=== PATIENT | male | born 1930 | race Caucasian/White ===

== ENCOUNTER 2018-12-29 10:05 | Inpatient (IN) | payer MEDICARE, MEDICAID ==
[~2018-12-29] VITALS: Ht 170.2 cm; Wt 62.2 kg
--- NOTE | 2018-12-29 10:08 | NUR ---
PT NIA, FROM [facility], C/O POOR PO INTAKE x 3 DAYS, PT IS AAOX1, NOT IN RESPIRATORY DISTRESS, V/S STABLE, HOOKED TO MONITOR, KEPT RESTED AND COMFORTABLE.
--- NOTE | 2018-12-29 10:13 | NUR ---
SEEN AND EXAMINED BY DR. LEWIS.
--- NOTE | 2018-12-29 10:15 | NUR ---
IV LINE ESTABLISHED, LABS DRAWNED AND SENT TO LAB.
[2018-12-29] MEDS ORDERED: IV NS 0.9% 1,000 ML BAG IV ONE (10:30)
--- NOTE | 2018-12-29 10:30 | NUR ---
URINAL GIVEN BUT UNABLE TO PROVIDE URINE SPECIMEN.
[2018-12-29 10:32] LABS: BASOPHILS # (AUTO) 0.2 /CMM (0.0-0.2); BASOPHILS % (AUTO) 2.2 % (0.0-2.0); EOSINOPHILS % (AUTO) 2.8 % (0.0-6.0); HEMATOCRIT 37 % (39-51); HEMOGLOBIN 12.1 g/dL (13.5-17.5); LYMPHOCYTES # (AUTO) 1.8 /CMM (0.8-4.8); LYMPHOCYTES % (AUTO) 18.8 % (20.0-44.0); MEAN CORPUSCULAR HGB CONC 33 g/dl (31.0-36.0); MEAN CORPUSCULAR VOLUME 86 fL (80-96); MONOCYTES # (AUTO) 1.4 /CMM (0.1-1.30); MONOCYTES % (AUTO) 14.1 % (2.0-12.0); NEUTROPHILS # (AUTO) 5.9 /CMM (1.8-8.9); NEUTROPHILS % (AUTO) 62.1 % (43.0-81.0); PLATELET COUNT (AUTO) 436 /CMM (150-450); RED BLOOD CELL COUNT(AUTO) 4.26 MIL/uL (4.5-6.0); WHITE BLOOD COUNT (AUTO) 9.6 K/uL (4.3-11.0)
[2018-12-29 10:43] LABS: CALCIUM, SERUM 11.7 mg/dL (8.5-10.1); CARBON DIOXIDE 20 mmol/L (21-32); CHLORIDE 107 mmol/L (98-107); CREATININE 2.6 mg/dL (0.6-1.3); POTASSIUM 5.1 mmol/L (3.5-5.1); SODIUM SERUM 140 mmol/L (136-145); UREA NITROGEN, BLOOD 52 mg/dL (7-18)
--- NOTE | 2018-12-29 10:46 | NUR ---
QUALITY COORDINATOR AT BEDSIDE FOR XRAY.
[2018-12-29 10:47] LABS: ALANINE AMINOTRANSFERASE 10 U/L (12-78); ALKALINE PHOSPHATASE 53 U/L (46-116); ASPARTATE AMINOTRANSFERASE 15 U/L (15-37); BILIRUBIN,DIRECT 0.1 mg/dL (0.0-0.2); BILIRUBIN,TOTAL 0.3 mg/dL (0.2-1.0)
[2018-12-29 10:48] LABS: ALBUMIN 3.2 g/dL (3.4-5.0); TOTAL PROTEIN, SERUM 7.2 g/dL (6.4-8.2)
[2018-12-29 10:56] LABS: GLUCOSE 115 mg/dL (74-106)
--- NOTE | 2018-12-29 11:16 | NUR ---
DR BLACKWELL PAGED THRU OFFICE
[2018-12-29] MEDS ORDERED: IV NS 0.9% 1,000 ML IV ONE (11:30)
--- NOTE | 2018-12-29 11:59 | NUR ---
PAGED DR BLACKWELL FOR CALL BACK
[2018-12-29] MEDS ORDERED: OLME20TA13 PO (13:13)
--- NOTE | 2018-12-29 13:16 | NUR ---
PT ASSIGNED [id number]
--- NOTE | 2018-12-29 13:28 | NUR ---
REPORT GIVEN TO FRANKY FAULKNER FOR ASHUTOSH.
[2018-12-29] MEDS ORDERED: MIRT15TA7 PO (13:30)
[2018-12-29] MEDS ORDERED: TAMS-12 PO (13:30)
[2018-12-29] MEDS ORDERED: ERGO500040 PO (13:30)
[2018-12-29] MEDS ORDERED: FINA5TAB11 PO (13:30)
[2018-12-29] MEDS ORDERED: AMLO5TAB9 PO (13:30)
[2018-12-29] MEDS ORDERED: ASPI-1152 PO (13:30)
[2018-12-29] MEDS ORDERED: ATOR10TA PO (13:30)
[2018-12-29] MEDS ORDERED: ARIP2TAB3 PO (13:30)
[2018-12-29] MEDS ORDERED: PRAV20TA4 PO (13:30)
[2018-12-29] MEDS ORDERED: LISI30TA4 PO (13:30)
[2018-12-29] MEDS ORDERED: SPIR25TA6 PO (13:30)
--- NOTE | 2018-12-29 14:00 | NUR ---
AD OPERATIONS ASSOCIATE PATIENT A/OX1, BREATHING EVEN AND UNLABORED, NO SOB NOTED, VSS, KEPT PATIENT COMFORTABLE, PATIENT ABLE TO AMBULATE INDEPENDENTLY, STANDBY ASSIST. RECEIVED ORDERS FROM DR. BLACKWELL, ORDERS NOTED AND CARRIED OUT. SKIN ASSESSMENT DONE, PATIENT NOTED WITH LEFT HIP OPEN WOUND. PHOTOS TAKEN AND PLACED IN CHART. NEEDS ATTENDED, CALL LIGHT WITHIN REACH, WILL CONTINUE TO MONITOR.
[2018-12-29] MEDS: IV NS 0.9% 1,000 ML IV PRN (16:27)
--- NOTE | 2018-12-29 18:35 | NUR ---
RN NOTES PATIENT A/OX1, NO SIGNIFICANT CHANGE THROUGHOUT THIS SHIFT, BREATHING EVEN AND UNLABORED, NO SOB NOTED. PATIENT ATE DINNER 100% AND TOLERATED WELL. KEPT COMFORTABLE, PIV INFUSING AND TOLERATING WELL, NEEDS ATTENDED, CALL LIGHT WITHIN REACH, WILL ENDORSE TO BUSINESS SOLUTIONS DIRECTOR FOR ASHUTOSH.
--- NOTE | 2018-12-29 19:30 | NUR ---
RECEIVED PATIENT IN BED AWAKE. AO X 1-2, ABLE TO MAKE NEEDS KNOWN. NO ACUTE DISTRESS NOTED. NO SIGNS OF PAIN NOTED. IV SITE PATENT, INTACT; IVF INFUSING ORDERED. SAFETY REMINDERS GIVEN. ON LOW BED WITH BILATERAL UPPER SIDE RAILS UP. CALL SANCHEZ WITHIN EASY REACH. WILL CONTINUE TO MONITOR.
[2018-12-29 20:00] VITALS: BP 130/68
[2018-12-29 20:47] VITALS: BP 130/68
[2018-12-29] MEDS: ATORVASTATIN 10 MG TABLET PO SCH (21:06)
--- NOTE | 2018-12-30 06:30 | NUR ---
PATIENT ASLEEP, EASILY AROUSABLE. RESPIRATIONS EVEN. NO SIGNS OF PAIN NOTED. DUE MED GIVEN WITH NO ASE NOTED. IVF INFUSING ORDERED. NEEDS ATTENDED. KEPT CLEAN, DRY, AND COMFORTABLE. SAFETY PRECAUTIONS AND COMFORT MEASURES IN PLACE. WILL GIVE REPORT TO DAY SHIFT FOR CONTINUITY OF CARE.
[2018-12-30 07:34] LABS: BASOPHILS # (AUTO) 0.1 /CMM (0.0-0.2); BASOPHILS % (AUTO) 1.4 % (0.0-2.0); HEMATOCRIT 32 % (39-51); HEMOGLOBIN 10.9 g/dL (13.5-17.5); LYMPHOCYTES # (AUTO) 1.4 /CMM (0.8-4.8); LYMPHOCYTES % (AUTO) 14.3 % (20.0-44.0); MEAN CORPUSCULAR HGB CONC 34 g/dl (31.0-36.0); MEAN CORPUSCULAR VOLUME 85 fL (80-96); MONOCYTES # (AUTO) 1.7 /CMM (0.1-1.30); MONOCYTES % (AUTO) 16.9 % (2.0-12.0); NEUTROPHILS # (AUTO) 6.3 /CMM (1.8-8.9); NEUTROPHILS % (AUTO) 64.4 % (43.0-81.0); PLATELET COUNT (AUTO) 339 /CMM (150-450); RED BLOOD CELL COUNT(AUTO) 3.75 MIL/uL (4.5-6.0); WHITE BLOOD COUNT (AUTO) 9.8 K/uL (4.3-11.0)
--- NOTE | 2018-12-30 07:35 | NUR ---
MS RN OPENING NOTE RECEIVED PATIENT IN BED. SLEEPING, EASILY AROUSED WITH VERBAL STIMULI. ORIENTED X1-2. ON ROOM AIR, TOLERATING WELL. IN NO APPARENT DISTRESS OR DISCOMFORT AT THIS TIME. RESPIRATIONS EVEN AND UNLABORED. DENIES PAIN AND SOB. PATIENT IS ABLE TO COMMUNICATE BASIC NEEDS WHEN ASKED. USES DIAPER FOR ELIMINATION. LEFT AC 18G IVC WITH FLUIDS RUNNING AT 75ML/HR, PATENT INTACT. PATIENT KEPT CLEAN AND COMFORTABLE. ALL NEEDS ATTENDED, SAFETY MEASURES IN PLACE, BED IN LOW LOCKED POSITION, SIDE RAILS UP X3, BED ALARM ON, CALL LIGHT WITHIN EASY REACH. WILL CONTINUE TO MONITOR.
[2018-12-30 07:43] LABS: CALCIUM, SERUM 9.9 mg/dL (8.5-10.1); CARBON DIOXIDE 17 mmol/L (21-32); CHLORIDE 109 mmol/L (98-107); CREATININE 1.6 mg/dL (0.6-1.3); GLUCOSE 81 mg/dL (74-106); POTASSIUM 4.8 mmol/L (3.5-5.1); SODIUM SERUM 138 mmol/L (136-145); UREA NITROGEN, BLOOD 33 mg/dL (7-18)
[2018-12-30 08:00] VITALS: BP_SYST 114; BP_DIAS 52; BP_DIAS 54
[2018-12-30] MEDS: ASPIRIN 81 MG TAB.CHEW PO SCH (08:50)
[2018-12-30] MEDS: IV NS 0.9% 1,000 ML IV PRN (08:50)
[2018-12-30] MEDS: TAMSULOSIN 0.4 MG CAP.SR.24H PO SCH (08:50)
[2018-12-30 16:00] VITALS: BP 114/54
--- NOTE | 2018-12-30 18:13 | NUR ---
MS RN CLOSING NOTE PATIENT IN BED. EATING DINNER, ALERT ORIENTED X2. ON ROOM AIR, TOLERATING WELL. IN NO APPARENT DISTRESS OR DISCOMFORT AT THIS TIME. RESPIRATIONS EVEN AND UNLABORED. DENIES PAIN AND SOB. PATIENT IS ABLE TO COMMUNICATE BASIC NEEDS WHEN ASKED. USES DIAPER FOR ELIMINATION. LEFT AC 18G IVC WITH FLUIDS RUNNING AT 75ML/HR, PATENT INTACT. PATIENT KEPT CLEAN AND COMFORTABLE. ALL NEEDS ATTENDED, SAFETY MEASURES IN PLACE, BED IN LOW LOCKED POSITION, SIDE RAILS UP X3, BED ALARM ON, CALL LIGHT WITHIN EASY REACH. WILL ENDORSE TO PM NURSE FOR ASHUTOSH.
--- NOTE | 2018-12-30 19:30 | NUR ---
RECEIVED PATIENT IN BED AWAKE. AO X 1-2, ABLE TO MAKE NEEDS KNOWN. NO ACUTE DISTRESS NOTED. NO SIGNS OF PAIN NOTED. IV SITE PATENT, INTACT; IVF INFUSING ORDERED. SAFETY REMINDERS GIVEN. ON LOW BED WITH BILATERAL UPPER SIDE RAILS UP. BED ALARM SET. CALL SANCHEZ WITHIN EASY REACH. WILL CONTINUE TO MONITOR.
[2018-12-30 20:00] VITALS: BP 123/60
[2018-12-30] MEDS: ATORVASTATIN 10 MG TABLET PO SCH (21:43)
[2018-12-31] MEDS: IV NS 0.9% 1,000 ML IV PRN ×2 (01:49→16:01)
--- NOTE | 2018-12-31 07:49 | NUR ---
RN MS NOTES Patient received on room air, no sob noted, a/o x2, patient speaks mainly v[place] citizen. Patient denies any pain. Patient is easily arousable and awaken. Patient's bed on lowest setting, call light within reach.
[2018-12-31] MEDS: TAMSULOSIN 0.4 MG CAP.SR.24H PO SCH (08:24)
[2018-12-31] MEDS: ASPIRIN 81 MG TAB.CHEW PO SCH (08:24)
[2018-12-31 08:41] VITALS: BP 124/60
[2018-12-31 09:38] LABS: CALCIUM, SERUM 10.3 mg/dL (8.5-10.1); CARBON DIOXIDE 17 mmol/L (21-32); CHLORIDE 110 mmol/L (98-107); CREATININE 1.6 mg/dL (0.6-1.3); GLUCOSE 112 mg/dL (74-106); POTASSIUM 4.4 mmol/L (3.5-5.1); SODIUM SERUM 141 mmol/L (136-145); UREA NITROGEN, BLOOD 25 mg/dL (7-18)
--- NOTE | 2018-12-31 11:32 | NUR ---
WOUND CARE CONSULT; PT PRESENTS WITH FRAGILE SCAR TO LEFT HIP AND SCARRING TO RT HIP ALSO, PRESENT ON ADMISSION. RECOMMENDATIONS MADE FOR SKIN PROTECTION AND CARE. DISCUSSED WITH NURSING STAFF. PT ON BECKY ISOFLEX LOW AIRLOSS BED. WILL SEE PRN. CURRENT ANDI SCORE IS 17. PT IS INCONTINENT. MD IN AGREEMENT WITH PLAN OF CARE.
--- NOTE | 2018-12-31 11:34 | NUR ---
RN MS NOTES Placed a mepilex on patient left hip
[2018-12-31] MEDS ORDERED: Z GUARD REMEDY 2 OZ OINT TP PRN (12:00)
[2018-12-31] MEDS: Z GUARD REMEDY 2 OZ OINT TP SCH (16:02)
[2018-12-31 16:12] VITALS: BP 123/61
--- NOTE | 2018-12-31 18:37 | NUR ---
RN MS CLOSING NOTES Patient is on room air, no sob noted. Patient denies pain, and is lying down in bed comfortably. Patient's left hip has a mepilex. Patient has diaper, and is incotinent. Patient's diet is now lactose reduced food. No pain meds administered. Bed is at lowest setting, call light within reach. All patient's needs met and report will be given bedside to the refractory tile helper RN.
[2018-12-31] MEDS: ENSURE ENLIVE 237 ML LIQUID (VANILLA) PO SCH (19:03)
--- NOTE | 2018-12-31 19:10 | NUR ---
RN OPEN NOTES RECEIVED PATIENT AWAKE IN BED. A/O X2, PERUVIAN SPEAKING. NO SIGNS OF DISTRESS OR DISCOMFORT. BREATHING EVEN AND UNLABORED. IV ACCESS IN LAC WITH NS @ 75 RUNNING, NO SIGNS OF REDNESS OR INFILTRATION. BED IN LOW LOCKED POSITION WITH SIDE RAILS X3. BED ALARM ON. CALL LIGHT WITHIN REACH. WILL CONTINUE TO MONITOR.
[2018-12-31 20:00] VITALS: BP 129/66
[2018-12-31] MEDS: ATORVASTATIN 10 MG TABLET PO SCH (22:44)
--- NOTE | 2019-01-01 06:39 | NUR ---
RN CLOSING NOTES PATIENT RESTING IN BED, EASILY AROUSABLE. A/O X2. NO SIGNS OF DISTRESS OR DISCOMFORT. BREATHING EVEN AND UNLABORED. IV ACCESS IN RFA WITH NS INFUSING, PATENT AND INTACT, NO SIGNS OF REDNESS OR INFILTRATION. ALL NEEDS MET. PATIENT KEPT CLEAN DRY AND COMFORTABLE. BED IN LOW LOCKED POSITION WITH SIDE RAILS X3. CALL LIGHT WITHIN REACH. WILL ENDORSE TO AM SHIFT FOR ASHUTOSH.
--- NOTE | 2019-01-01 07:47 | NUR ---
RN MS OPENING NOTES Patient received on room air, no sob noted. Patient denies pain, patient is easily awaken. Patient RFA 22 gauge is secured and is flowing properly with no obstruction. Patient's bed is at the lowest setting, call light within reach.
[2019-01-01 08:00] VITALS: BP 112/71
[2019-01-01] MEDS: ASPIRIN 81 MG TAB.CHEW PO SCH (09:07)
[2019-01-01] MEDS: TAMSULOSIN 0.4 MG CAP.SR.24H PO SCH (09:07)
[2019-01-01] MEDS: Z GUARD REMEDY 2 OZ OINT TP SCH (09:09)
[2019-01-01] MEDS: ENSURE ENLIVE 237 ML LIQUID (VANILLA) PO SCH (10:32)
--- NOTE | 2019-01-01 16:48 | NUR ---
RN MS SEBASTIAN NOTES Patient discharged on room air with no sob noted. Patient's vital signs were stable, and patient denies any pain. Patient's left buttock was taken a photo of. Patient's belongings with him. Clothing, wallet with $3, and top and bottom dentures with patient. Discharge instruction given to patient. Patient is discharged to [facility].
== END 2019-01-01 15:40 | DRG 683 ==
LOC: ER 10:05 → MED 13:35
PROVIDERS: ADMIT Internal Medicine; ATTEND Internal Medicine
DX: N17.9 Acute kidney failure, unspecified (principal); G93.40 Encephalopathy, unspecified; E87.2 Acidosis; I69.354 Hemiplegia and hemiparesis following cerebral infarction affecting left non-dominant side; E78.5 Hyperlipidemia, unspecified; I10 Essential (primary) hypertension; F03.90 Unspecified dementia, unspecified severity, without behavioral disturbance, psychotic disturbance, mood disturbance, and anxiety; E86.0 Dehydration; E83.52 Hypercalcemia; N40.0 Benign prostatic hyperplasia without lower urinary tract symptoms; I25.10 Atherosclerotic heart disease of native coronary artery without angina pectoris; D63.8 Anemia in other chronic diseases classified elsewhere; Z79.899 Other long term (current) drug therapy; Z87.891 Personal history of nicotine dependence; Z79.82 Long term (current) use of aspirin
CPT/HCPCS: 36415; 71045-TC; 80048-TC; 80076-TC; 84484-TC; 85025-TC; 87081-TC; 97110-TC; 97116-TC; 97530-TC; G0378; J7030

== ENCOUNTER 2019-01-22 14:03 | Inpatient (IN) | payer MEDICARE, MEDICAID ==
[~2019-01-22] VITALS: Ht 182.9 cm; Wt 77.1 kg
[~2019-01-22 14:03] MED LIST: AMLO5TAB9 PO; ARIP2TAB3 PO; ASPI-1152 PO; ATOR10TA PO; ERGO500040 PO; FINA5TAB11 PO; LISI30TA4 PO; MIRT15TA7 PO; OLME20TA13 PO; PRAV20TA4 PO; SPIR25TA6 PO; TAMS-12 PO
--- NOTE | 2019-01-22 14:15 | NUR ---
BIBA unit 22 Ambulife from [facility] acute care [place] "increasing weakness/more altered than usual" Patient breathing even and unlabored, NO sob noted, kept comfortable. placed on the monitor.
[2019-01-22] MEDS ORDERED: CALC500T52 PO (14:20)
[2019-01-22] MEDS ORDERED: CHOL400T11 PO (14:20)
[2019-01-22] MEDS ORDERED: AMIN30LI27 PO (14:20)
[2019-01-22] MEDS ORDERED: CINA30TA2 PO (14:20)
[2019-01-22] MEDS ORDERED: IV NS 0.9% 1,000 ML BAG IV ONE (14:30)
[2019-01-22 14:34] LABS: BASOPHILS # (AUTO) 0.2 /CMM (0.0-0.2); BASOPHILS % (AUTO) 0.8 % (0.0-2.0); HEMATOCRIT 34 % (39-51); HEMOGLOBIN 10.9 g/dL (13.5-17.5); LYMPHOCYTES # (AUTO) 1.9 /CMM (0.8-4.8); MEAN CORPUSCULAR HGB CONC 32 g/dl (31.0-36.0); MEAN CORPUSCULAR VOLUME 85 fL (80-96); MONOCYTES # (AUTO) 2.7 /CMM (0.1-1.30); NEUTROPHILS # (AUTO) 19.5 /CMM (1.8-8.9); NEUTROPHILS % (AUTO) 80.2 % (43.0-81.0); PLATELET COUNT (AUTO) 369 /CMM (150-450); RED BLOOD CELL COUNT(AUTO) 3.98 MIL/uL (4.5-6.0); WHITE BLOOD COUNT (AUTO) 24.2 K/uL (4.3-11.0)
[2019-01-22 14:49] LABS: ALANINE AMINOTRANSFERASE 21 U/L (12-78); ALBUMIN 2.2 g/dL (3.4-5.0); ALKALINE PHOSPHATASE 68 U/L (46-116); ASPARTATE AMINOTRANSFERASE 34 U/L (15-37); BILIRUBIN,DIRECT 0.2 mg/dL (0.0-0.2); BILIRUBIN,TOTAL 0.6 mg/dL (0.2-1.0); CALCIUM, SERUM 12.9 mg/dL (8.5-10.1); CARBON DIOXIDE 20 mmol/L (21-32); CHLORIDE 118 mmol/L (98-107); CREATININE 3.8 mg/dL (0.6-1.3); GLUCOSE 102 mg/dL (74-106); POTASSIUM 4.8 mmol/L (3.5-5.1); SODIUM SERUM 152 mmol/L (136-145); TOTAL PROTEIN, SERUM 5.9 g/dL (6.4-8.2)
[2019-01-22 14:51] LABS: UREA NITROGEN, BLOOD 94 mg/dL (7-18)
--- NOTE | 2019-01-22 14:55 | NUR ---
patient went to CT.
[2019-01-22 14:57] LABS: SERUM AMMONIA < 10 umol/L (11-32)
[2019-01-22] MEDS ORDERED: VANCOMYCIN 1 GM in IV D5W 250 ML IV ONE (15:00)
[2019-01-22] MEDS ORDERED: PIPERACILLIN /TAZOBACTAM 2.25 G in IV D5W 50 ML IV ONE (15:00)
[2019-01-22] MEDS ORDERED: PIPERACILLIN /TAZOBACTAM 3.375 G in IV D5W 50 ML IV ONE (15:00)
[2019-01-22 15:09] LABS: THYROID STIMULATING HORMONE 11.607 uIU/mL (0.358-3.74)
[2019-01-22] MEDS: IV NS 0.9% 1,000 ML BAG IV ONE ×2 (15:29→15:35)
[2019-01-22 15:32] LABS: BAND % (MANUAL) 3 % (0.0-5.0); LYMPHOCYTES % (MANUAL) 11 % (16-48); MONOCYTES % (MANUAL) 6 % (0-11.0); NEUTROPHILS % (MANUAL) 80 (42-76)
[2019-01-22 15:33] LABS: APPEARANCE,URINE Clear (CLEAR); BILIRUBIN,URINE Negative (NEGATIVE); BLOOD, URINE Small Ery/uL (NEGATIVE); COLOR,URINE Yellow (YELLOW); KETONES,URINE Negative (NEGATIVE); LEUKOCYTE ESTERASE ,URINE Moderate (NEGATIVE); NITRITE, URINE Positive (NEGATIVE); PH,URINE 5.5 (5.0-8.0); PROTEIN,URINE 30 mg/dl (NEGATIVE); UGLUCOSE Negative (NEGATIVE)
[2019-01-22 15:50] LABS: BACTERIA,URINE 3+ /HPF (None Seen); SQUAMOUS EPITHELIAL CELL,UR Few /HPF (None Seen)
--- NOTE | 2019-01-22 16:21 | NUR ---
ROOM 326-2
--- NOTE | 2019-01-22 16:25 | NUR ---
BED GIVEN 326-2
--- NOTE | 2019-01-22 16:34 | NUR ---
REPORT GIVEN TO NIKO WILKINS, PATIENT WILL BE TRANSFERRED TO ROOM 326-2 VIA ACLS PROTOCOL. IV FLUIDS AND IV VANCOMYCIN STILL INFUSING.
--- NOTE | 2019-01-22 16:39 | NUR ---
PATIENT TRANSFERRED TO ROOM 326-2 VIA ACLS, IVF AND IV STILL INFUSING, UNABLE TO COMPLETE RE-ASSESSMENT SEPSIS FLUID CHALLENGE, NS IS STILL INFUSING. PATIENT A/OX1, IN STABLE CONDITION.
--- NOTE | 2019-01-22 16:45 | NUR ---
TIRE DEBEADER NOTES RECEIVED PT FROM E.R. STAFF VIA [place], AWAKE, ABLE TO NOD WHEN NAME IS CALLED, NON VERBAL AT THIS TIME, NO FACIAL GRIMACING OR MOANING, RESPIRATIONS NORMAL, ASSISSTED TO BED, MADE COMFORTABLE, ROOM SET UP ORIENTATION PROVIDED TO PT, PM CARE PROVIDED, SKIN CHECK DONE, PHOTOS TAKEN, AWAITING ADMITTING ORDERS FROM DR. BLACKWELL, SINUS RHYTM WITH OCCASIONAL PVC'S AND PAC'S, KEPT PT COMFORTABLE, VITAL SIGNS TAKEN AND RECORDED.
[2019-01-22] MEDS ORDERED: IV NS 0.9% 1,000 ML BAG IV PRN (17:30)
--- NOTE | 2019-01-22 17:41 | NUR ---
BOATBUILDER APPRENTICE WOOD NOTES PT SEEN AND EXAMINED BY DR. BLACKWELL, ADMITTING ORDERS RECEIVED, PER MD SOL PT NPO.
--- NOTE | 2019-01-22 19:00 | NUR ---
RN MS NOTES PT IN BED, ASLEEP, EASY TO AROUSE, NODS HEAD AT TIMES, REMAINS NON VERBAL, NO SIGN OF PAIN OR DISTRESS, IV FLUIDS INFUSING WELL, BREATHING PATTERN NORMAL, CALL LIGHT WITHIN REACH, KEPT CLEAN AND COMFORTABLE.
[2019-01-22] MEDS: IV NS 0.9% 1,000 ML IV PRN (19:08)
[2019-01-22 20:00] VITALS: BP 108/52
--- NOTE | 2019-01-22 20:40 | NUR ---
OIL WELL CABLE TOOL DRILLER NOTES RECEIVED PATIENT ASLEEP IN BED WITH NO DISTRESS NOTED. CALL LIGHT WITHIN REACH. NO FACIAL GRIMACING OR GROANING TO INDICATE PAIN OR DISCOMFORT. PERIPHERAL LINE INTACT AND PATENT. BED IN LOW LOCK SETTING. BED ALARM ON AND FUNCTIONING PROPERLY. ROOM FREE OF CLUTTER AND BELONGINGS KEPT NEAR BEDSIDE. WILL CONTINUE TO MONITOR.
[2019-01-23] VITALS: BP 105/53
[2019-01-23] MEDS: IV NS 0.9% 1,000 ML IV PRN (03:41)
[2019-01-23 04:00] VITALS: BP 121/65
--- NOTE | 2019-01-23 06:23 | NUR ---
GRID INSPECTOR NOTES PATIENT ASLEEP IN BED WITH NO DISTRESS NOTED. CALL LIGHT WITHIN REACH. NPO STATUS OBSERVED AND MAINTAINED AT ALL TIMES. PERIPHERAL LINE INTACT AND PATENT. NO FACIAL GRIMACING OR GROANING TO INDICATE PAIN OR DISCOMFORT. BED IN LOW LOCK SETTING. BED ALARM ON AND FUNCTIONING PROPERLY. ALL BELONGINGS KEPT NEAR BEDSIDE. WILL ENDORSE TO ONCOMING SHIFT.
--- NOTE | 2019-01-23 07:10 | NUR ---
POWDER LOADER NOTES PT IS RESTING IN BED WITH EYES CLOSED. RESPIRATION IS CLEAR, EQUAL, AND UNLABORED. PT IS ON TELE MONITOR WITH SINUS HARI 53 BPM. PT IS NPO AT THIS TIME. IV IS ON LFA INTACT, PATENT AND INFUSING AT 125 ML/HR. NO SIGN OF PAIN OR ANY DISCOMFORT AT THIS TIME. BED AT LOW POSITION AND CALL LIGHT IS WITHIN REACH. WILL CONTINUE TO MONITOR.
[2019-01-23 07:24] LABS: BASOPHILS % (AUTO) 0.3 % (0.0-2.0); EOSINOPHILS % (AUTO) 0.2 % (0.0-6.0); HEMATOCRIT 30 % (39-51); HEMOGLOBIN 9.8 g/dL (13.5-17.5); LYMPHOCYTES % (AUTO) 6.9 % (20.0-44.0); MEAN CORPUSCULAR HGB CONC 33 g/dl (31.0-36.0); MEAN CORPUSCULAR VOLUME 84 fL (80-96); MONOCYTES # (AUTO) 1.5 /CMM (0.1-1.30); MONOCYTES % (AUTO) 10.1 % (2.0-12.0); NEUTROPHILS % (AUTO) 82.5 % (43.0-81.0); PLATELET COUNT (AUTO) 291 /CMM (150-450); RED BLOOD CELL COUNT(AUTO) 3.55 MIL/uL (4.5-6.0); WHITE BLOOD COUNT (AUTO) 14.6 K/uL (4.3-11.0)
[2019-01-23 07:36] LABS: CALCIUM, SERUM 10.9 mg/dL (8.5-10.1); CARBON DIOXIDE 16 mmol/L (21-32); CHLORIDE 125 mmol/L (98-107); CREATININE 3.1 mg/dL (0.6-1.3); GLUCOSE 82 mg/dL (74-106); POTASSIUM 4.1 mmol/L (3.5-5.1)
[2019-01-23 08:00] VITALS: BP 110/58
[2019-01-23 08:06] LABS: SODIUM SERUM 157 mmol/L (136-145); UREA NITROGEN, BLOOD 85 mg/dL (7-18)
--- NOTE | 2019-01-23 11:10 | NUR ---
RN NOTERS PER DR. NEHAL DENISE TO D/C TELEMETRY MONITORING.
[2019-01-23] MEDS: IV D5/0.45 NACL 1,000 ML IV PRN (13:28)
[2019-01-23 16:00] VITALS: BP 116/54
[2019-01-23] MEDS: FUROSEMIDE 20 MG/2 ML VIAL IV SCH ×2 (16:39→20:23)
--- NOTE | 2019-01-23 18:05 | NUR ---
BRENT RN CLOSING NOTES PT WAS SEEN BY DR. BLACKWELL TO DISCUSSED PLAN OF CARE WITH PT'S FAMILY. PT IS RESTING IN BED. NO SIGN OF PAIN OR DISTRESS. PM CARE PROVIDED. OLD IV SITE LEFT FOREARM ACCIDENTALLY REMOVED. NEW IV SITE AT LEFT HAND 22 G, INTACT, PATENT AND FLUSH WITHOUT RESISTANCE AND HAS GOOD BLOOD RETURNED. NOW IV IS RUNNING AT 100 ML/HR. TURNING AND REPOSITIONING Q 2HR. BED AT LOW POSITION AND CALL LIGHT IS WITHIN REACH. PT STILL NPO AT THIS TIME.
[2019-01-23 20:00] VITALS: BP 132/71
--- NOTE | 2019-01-23 21:01 | NUR ---
MS RN NOTES RECEIVED PATIENT AWAKE IN BED WITH NO DISTRESS NOTED. CALL LIGHT WITHIN REACH. NO FACIAL GRIMACING OR GROANING TO INDICATE PAIN OR DISCOMFORT. PERIPHERAL LINE INTACT AND PATENT. BED IN LOW LOCK SETTING. ALL BELONGINGS KEPT NEAR BEDSIDE. BED ALARM ON AND FUNCTIONING PROPERLY. WILL CONTINUE TO MONITOR.
[2019-01-24] MEDS: IV D5/0.45 NACL 1,000 ML IV PRN ×3 (00:56→21:46)
--- NOTE | 2019-01-24 06:01 | NUR ---
MS RN NOTES PATIENT ASLEEP IN BED WITH NO DISTRESS NOTED. CALL LIGHT WITHIN REACH. ALL DUE MEDS GIVEN ORDERED WITH NO ASE NOTED. PERIPHERAL LINE INTACT AND PATENT. NO FACIAL GRIMACING OR GROANING TO INDICATE PAIN OR DISCOMFORT. BED IN LOW LOCK SETTING. ALL BELONGINGS KEPT NEAR BEDSIDE. BED ALARM ON AND FUNCTIONING PROPERLY. WILL ENDORSE TO ONCOMING SHIFT.
[2019-01-24 06:24] LABS: APPEARANCE,URINE CLEAR (CLEAR); BILIRUBIN,URINE NEGATIVE (NEGATIVE); BLOOD, URINE NEGATIVE Ery/uL (NEGATIVE); COLOR,URINE YELLOW (YELLOW); KETONES,URINE NEGATIVE (NEGATIVE); LEUKOCYTE ESTERASE ,URINE NEGATIVE (NEGATIVE); NITRITE, URINE NEGATIVE (NEGATIVE); PH,URINE 5.5 (5.0-8.0); PROTEIN,URINE NEGATIVE (NEGATIVE); UGLUCOSE NEGATIVE (NEGATIVE); UROBILINOGEN,URINE 0.2 EU/dL (0.2)
[2019-01-24 06:25] LABS: BASOPHILS # (AUTO) 0.1 /CMM (0.0-0.2); BASOPHILS % (AUTO) 0.7 % (0.0-2.0); EOSINOPHILS % (AUTO) 1.2 % (0.0-6.0); HEMATOCRIT 34 % (39-51); HEMOGLOBIN 11.3 g/dL (13.5-17.5); LYMPHOCYTES % (AUTO) 9.1 % (20.0-44.0); MEAN CORPUSCULAR HGB CONC 33 g/dl (31.0-36.0); MEAN CORPUSCULAR VOLUME 84 fL (80-96); MONOCYTES # (AUTO) 1.3 /CMM (0.1-1.30); MONOCYTES % (AUTO) 12.6 % (2.0-12.0); NEUTROPHILS # (AUTO) 8.1 /CMM (1.8-8.9); NEUTROPHILS % (AUTO) 76.4 % (43.0-81.0); PLATELET COUNT (AUTO) 318 /CMM (150-450); RED BLOOD CELL COUNT(AUTO) 4.04 MIL/uL (4.5-6.0); WHITE BLOOD COUNT (AUTO) 10.7 K/uL (4.3-11.0)
[2019-01-24 06:33] LABS: EOSINOPHIL,URINE None Seen
[2019-01-24 06:38] LABS: CREATINE KINASE, TOTAL 33 U/L (39-308)
[2019-01-24 06:41] LABS: ALANINE AMINOTRANSFERASE 15 U/L (12-78); ALBUMIN 1.8 g/dL (3.4-5.0); ALKALINE PHOSPHATASE 71 U/L (46-116); ASPARTATE AMINOTRANSFERASE 19 U/L (15-37); BILIRUBIN,TOTAL 0.4 mg/dL (0.2-1.0); CALCIUM, SERUM 10.3 mg/dL (8.5-10.1); CARBON DIOXIDE 18 mmol/L (21-32); CHLORIDE 123 mmol/L (98-107); GLUCOSE 89 mg/dL (74-106); MAGNESIUM 2.3 mg/dL (1.8-2.4); PHOSPHORUS 4.5 mg/dL (2.5-4.9); POTASSIUM 3.5 mmol/L (3.5-5.1); TOTAL PROTEIN, SERUM 5.3 g/dL (6.4-8.2); UREA NITROGEN, BLOOD 76 mg/dL (7-18)
[2019-01-24 07:06] LABS: URINE TOTAL PROTEIN 22.8 mg/dL (0-11.9)
[2019-01-24 07:09] LABS: SODIUM SERUM 157 mmol/L (136-145)
--- NOTE | 2019-01-24 07:20 | NUR ---
MS RN OPENING NOTES RECEIVED REPORT FROM PM NURSE. PATIENT AWAKE IN BED WITH NO DISTRESS NOTED. ABLE TO ANSWER YES/NO QUESTIONS.NOS/S OF PAIN OR DISCOMFORT AT THIS TIME. IV LINE L HAND #22 INTACT AND PATENT. BED IN LOW AND IN LOCKED POSITION.CALL LIGHT IN REACH. SRX3.BED ALARM ON AND FUNCTIONING PROPERLY. WILL CONTINUE TO MONITOR.
[2019-01-24 08:00] VITALS: BP 124/63
[2019-01-24] MEDS: FUROSEMIDE 20 MG/2 ML VIAL IV SCH ×2 (08:30→21:45)
[2019-01-24] MEDS ORDERED: HEPARIN SODIUM, PORCINE 5000 UNITS/1 ML VIAL SQ SCH (14:30)
--- NOTE | 2019-01-24 15:30 | NUR ---
MS RN NOTE SEEN BY UPDATED ABOUT PATIENT CONDITION,WITH LABS.OK TO GIVE HEPARIN EVEN APTT>170,HE SAID PATIENT DONT HAVE ANY BLOOD DISEASES.OK TO GIVE IT CLARIFIED 2 TIMES.MADE AWARE THAT POSITIVE URINE CULTURE ,NOT ON ANY ANTIBIOTICS.ASYMPTOMATIC.HE SAID HE WILL TALK TO LIZBETH BLACKWELL.
[2019-01-24 16:00] VITALS: BP 127/63
[2019-01-24] MEDS: HEPARIN SODIUM, PORCINE 5000 UNITS/1 ML VIAL SQ SCH (17:49)
--- NOTE | 2019-01-24 19:49 | NUR ---
MS RN CLOSING NOTE ENDORSED TO PM NURSE FOR ASHUTOSH.PATIENT IN STABLE CONDITION.F/U WITH MATTRESS.AND POSITIVE URINE CULTURE.
--- NOTE | 2019-01-24 19:50 | NUR ---
MS/RN NOTES RECEIVED PT. LYING IN BED. PT. IS AWAKE, WITH EYES OPEN. BREATHING EVEN AND UNLABORED ON 2LPM O2 VIA NC. NO SOB, RESPIRATORY DISTRESS OR COMPLAINTS OF PAIN NOTED AT THIS TIME. PT. WITH LEFT HAND 22 GAUGE PERIPHERAL IV PRESENT, PATENT AND INTACT ADMINISTERING TO PT. D5 1/2 NS @ 100ML/HR. BED LOCKED AND IN LOWEST POSITION, SIDE RAILS UP X3, BED ALARM ON, CALL LIGHT WITHIN REACH, WILL CONTINUE TO MONITOR.
[2019-01-24 20:00] VITALS: BP 135/68
[2019-01-25] MEDS: HEPARIN SODIUM, PORCINE 5000 UNITS/1 ML VIAL SQ SCH ×2 (05:35→18:18)
--- NOTE | 2019-01-25 06:45 | NUR ---
MS/RN NOTES PT. IS LYING IN BED RESTING. BREATHING EVEN AND UNLABORED ON 2LPM O2 VIA NC. NO SOB, RESPIRATORY DISTRESS OR COMPLAINTS OF PAIN NOTED AT THIS TIME AND THROUGHOUT SHIFT. PT. REMAINS NPO. PT. WITH LEFT HAND 22 GAUGE PERIPHERAL IV PRESENT, PATENT AND INTACT ADMINISTERING TO PT. D5 1/2 NS @ 100ML/HR. ALL PT. NEEDS MET. PT. OFFLOADED, TURNED AND REPOSITIONED Q2H AND NEEDED. BED LOCKED AND IN LOWEST POSITION, SIDE RAILS UP X3, BED ALARM ON, CALL LIGHT WITHIN REACH, WILL ENDORSE TO DAYSHIFT NURSE FOR CONTINUITY OF CARE.
[2019-01-25 07:28] LABS: BASOPHILS # (AUTO) 0.1 /CMM (0.0-0.2); BASOPHILS % (AUTO) 0.8 % (0.0-2.0); EOSINOPHILS % (AUTO) 1.5 % (0.0-6.0); HEMATOCRIT 35 % (39-51); HEMOGLOBIN 11.3 g/dL (13.5-17.5); LYMPHOCYTES # (AUTO) 1.2 /CMM (0.8-4.8); LYMPHOCYTES % (AUTO) 12.3 % (20.0-44.0); MEAN CORPUSCULAR HGB CONC 33 g/dl (31.0-36.0); MEAN CORPUSCULAR VOLUME 83 fL (80-96); MONOCYTES # (AUTO) 1.3 /CMM (0.1-1.30); MONOCYTES % (AUTO) 13.7 % (2.0-12.0); NEUTROPHILS # (AUTO) 6.8 /CMM (1.8-8.9); NEUTROPHILS % (AUTO) 71.7 % (43.0-81.0); PLATELET COUNT (AUTO) 296 /CMM (150-450); RED BLOOD CELL COUNT(AUTO) 4.15 MIL/uL (4.5-6.0); WHITE BLOOD COUNT (AUTO) 9.5 K/uL (4.3-11.0)
--- NOTE | 2019-01-25 07:43 | NUR ---
M/S RN NOTES PATIENT AWAKE, LYING IN BED. PATIENT WITH NO RESPIRATORY DISTRESS NOTED. NO C/O OF PAIN AT THIS TIME. IVF OF D5 1/2 NS @100ML/HR INFUSING WELL ON THE LT HAND #22G, NO REDNESS, NO INFILTRATION NOTED. SKIN WARM TO TOUCH. BED IN LOW AND LOCKED POSITION, CALL LIGHT WITHIN REACH. WILL CONTINUE TO MONITOR.
[2019-01-25 07:49] LABS: ALANINE AMINOTRANSFERASE 17 U/L (12-78); ALBUMIN 1.8 g/dL (3.4-5.0); ALKALINE PHOSPHATASE 85 U/L (46-116); ASPARTATE AMINOTRANSFERASE 28 U/L (15-37); BILIRUBIN,TOTAL 0.5 mg/dL (0.2-1.0); CALCIUM, SERUM 9.9 mg/dL (8.5-10.1); CARBON DIOXIDE 18 mmol/L (21-32); CHLORIDE 121 mmol/L (98-107); CREATINE KINASE, TOTAL 27 U/L (39-308); CREATININE 2.7 mg/dL (0.6-1.3); GLUCOSE 87 mg/dL (74-106); MAGNESIUM 2.1 mg/dL (1.8-2.4); PHOSPHORUS 3.5 mg/dL (2.5-4.9); POTASSIUM 3.2 mmol/L (3.5-5.1); SODIUM SERUM 154 mmol/L (136-145); TOTAL PROTEIN, SERUM 5.4 g/dL (6.4-8.2); UREA NITROGEN, BLOOD 61 mg/dL (7-18)
[2019-01-25 08:00] VITALS: BP 121/59
[2019-01-25] MEDS: IV D5/0.45 NACL 1,000 ML IV PRN ×2 (08:38→18:07)
[2019-01-25] MEDS: FUROSEMIDE 20 MG/2 ML VIAL IV SCH ×2 (08:41→20:21)
--- NOTE | 2019-01-25 10:40 | NUR ---
WOUND CARE CONSULT: PT PRESENTS WITH INCONTINENCE ASSOCIATED SKIN DAMAGE TO SCROTAL AREA, PRESENT ON ADMISSION. RECOMMENDATIONS MADE FOR SKIN CARE AND PROTECTION. DISCUSSED WITH NURSING STAFF. WILL SEE ISOFLEX LOW AIRLOSS BED TO BE PLACED. WILL SEE PRN. DOYLE IN AGREEMENT WITH PLAN OF CARE. Addendum: 01/25/19 at 1042 by RANJITH OWEN WNDNU Amended: Links added.
[2019-01-25] MEDS ORDERED: Z GUARD REMEDY 2 OZ OINT TP PRN (11:00)
[2019-01-25 11:12] LABS: *SPE A/G RATIO 0.8 (0.7-1.7); *SPE ALBUMIN 2.1 g/dL (2.9-4.4); *SPE ALPHA-1-GLOBULIN 0.3 g/dL (0.0-0.4); *SPE BETA GLOBULIN 0.7 g/dL (0.7-1.3); *SPE GLOBULIN, TOTAL 2.7 g/dL (2.2-3.9); *SPE M-SPIKE 0.2 g/dL (Not Observed); *SPEGAMMA GLOBULIN 0.6 g/dL (0.4-1.8)
[2019-01-25] MEDS: Z GUARD REMEDY 2 OZ OINT TP SCH (11:14)
[2019-01-25 16:00] VITALS: BP 118/64
--- NOTE | 2019-01-25 17:53 | NUR ---
M/S RN NOTES PATIENT RESTING IN BED, NO RESPIRATORY DISTRESS NOTED. PATIENT ON 2L NASAL CANULA, TOLERATING WELL. PATIENT WITH NO C/O OF PAIN AT THIS TIME. SKIN WARM TO TOUCH. IVF OF D5 1/2NS @ 100ML/HR, INFUSING WELL. PATIENT PLACED ON ISOFLEX AKUA BED FOR SKIN MANAGEMENT. PATIENT ORDERED CT CHEST, ABDOMEN, PELVIS W/O CONTRAST PER DR. BLACKWELL. BED ON LOW AND LOCKED POSITION, CALL LIGHT WITHIN REACH. WILL ENDORSE TO ONCOMING NURSE.
--- NOTE | 2019-01-25 19:05 | NUR ---
MS RN OPENING NOTES Received patient in bed, awake with no distress noted. On O2 via nasal cannula. Peripheral IV of D5 1/2 NS infusing at 100mL/hr. Patient stable as endorsed by the AM RN. Safety measures in place; call light within reach. Bed in low, locked position, side rails x 3. Will continue to monitor accordingly
[2019-01-25 20:00] VITALS: BP 111/60
[2019-01-25 20:37] VITALS: BP 111/60
--- NOTE | 2019-01-25 21:30 | NUR ---
RN NOTES Patient transferred to [facility]
[2019-01-25 23:37] LABS: FREE PSA 0.09 ng/mL (0.00-45); PROSTATE SPECIFIC ANTIGEN SCR 0.46 ng/mL (0.00-4.00); URIC ACID 11.4 mg/dL (2.6-7.2)
--- NOTE | 2019-01-26 01:35 | NUR ---
RN NOTES U/A sample sent
[2019-01-26] MEDS: IV D5/0.45 NACL 1,000 ML IV PRN (05:39)
[2019-01-26] MEDS: HEPARIN SODIUM, PORCINE 5000 UNITS/1 ML VIAL SQ SCH ×2 (05:47→17:36)
--- NOTE | 2019-01-26 06:54 | NUR ---
MS WILKINS CLOSING NOTES Patient resting in bed, no distress noted. On O2 2LPM via nasal cannula tolerating well. Peripheral IV of D5 1/2 NS infusing at 100mL/hr. No acute changes overnight. All needs attended and met. Safety measures in place; call light within reach. Bed in low, locked position, side rails x 3. Will continue to monitor accordingly Addendum: 01/26/19 at 0659 by WENDY RODRÍGUEZ RN Endorsed ASHUTOSH to AM FRANKY.
[2019-01-26 07:56] LABS: ALANINE AMINOTRANSFERASE 22 U/L (12-78); ALBUMIN 1.9 g/dL (3.4-5.0); ALKALINE PHOSPHATASE 89 U/L (46-116); ASPARTATE AMINOTRANSFERASE 28 U/L (15-37); BILIRUBIN,TOTAL 0.7 mg/dL (0.2-1.0); CALCIUM, SERUM 9.8 mg/dL (8.5-10.1); CARBON DIOXIDE 19 mmol/L (21-32); CHLORIDE 120 mmol/L (98-107); CREATININE 2.3 mg/dL (0.6-1.3); GLUCOSE 84 mg/dL (74-106); SODIUM SERUM 153 mmol/L (136-145); TOTAL PROTEIN, SERUM 5.3 g/dL (6.4-8.2); UREA NITROGEN, BLOOD 55 mg/dL (7-18)
[2019-01-26 08:00] VITALS: BP 112/56
[2019-01-26 08:09] LABS: PROSTATE SPECIFIC ANTIGEN SCR 0.41 ng/mL (0.00-4.00); URIC ACID 10.4 mg/dL (2.6-7.2)
[2019-01-26] MEDS: FUROSEMIDE 20 MG/2 ML VIAL IV SCH ×2 (08:10→20:22)
[2019-01-26] MEDS: Z GUARD REMEDY 2 OZ OINT TP SCH (08:11)
[2019-01-26 08:19] LABS: APPEARANCE,URINE SL CLOUDY (CLEAR); BILIRUBIN,URINE NEGATIVE (NEGATIVE); BLOOD, URINE NEGATIVE Ery/uL (NEGATIVE); COLOR,URINE YELLOW (YELLOW); KETONES,URINE NEGATIVE (NEGATIVE); LEUKOCYTE ESTERASE ,URINE TRACE (NEGATIVE); NITRITE, URINE NEGATIVE (NEGATIVE); PH,URINE 5.5 (5.0-8.0); PROTEIN,URINE NEGATIVE (NEGATIVE); UGLUCOSE NEGATIVE (NEGATIVE)
[2019-01-26 08:20] LABS: IRON, SERUM 24 ug/dl (50-175); TOTAL IRON BINDING CAPACITY 127 ug/dl (250-450)
[2019-01-26 08:33] LABS: BACTERIA,URINE 2+ /HPF (None Seen); MUCUS,URINE Few /LPF (None Seen); RBC,URINE 0-2 /HPF (0-2); SQUAMOUS EPITHELIAL CELL,UR 0-2 /HPF (None Seen); URINE AMORPHOUS URATE Moderate /HPF (None Seen)
--- NOTE | 2019-01-26 08:34 | NUR ---
M/S RN NOTES PATIENT AWAKE, LYING IN BED. NO RESPIRATORY DISTRESS NOTED. PATIENT ON 2L O2 VIA NASAL CANULA. NO C/O PAIN AT THIS TIME. SKIN WARM TO TOUCH. PATIENT ON IVF OF D5 1/2NS INFUSING AT 100ML/HR ON THE LEFT HAND #22G, NO REDNESS, NO INFILTRATION. BED ON LOW AND LOCKED POSITION, CALL LIGHT WITHIN REACH. WILL CONTINUE TO MONITOR.
[2019-01-26] MEDS: IV D5W 1,000 ML IV PRN ×2 (10:30→21:39)
[2019-01-26] MEDS: POTASSIUM CL. PREMIX PERIPHER. 50 ML IV SCH ×5 (10:37→14:36)
[2019-01-26 16:00] VITALS: BP 109/54
--- NOTE | 2019-01-26 17:53 | NUR ---
M/S RN NOTES PATIENT AWAKE, LYING IN BED WITH NO RESPIRATORY DISTRESS NOTED. NO C/O PAIN. IVF OF D5W @ 100ML/HR INFUSING WELL ON LT HAND #22G. ORDER OF 50 MEQ KCL IV FINISHED. LABS TO BE DONE TOMORROW AM, CT/BONE SCAN STILL PENDING. WILL ENDORSE TO ONCOMING NURSE.
--- NOTE | 2019-01-26 19:30 | NUR ---
MS RN OPENING NOTES RECEIVED PATIENT IN BED AWAKE, ALERT AND ORIENTED X0-1, RESPONDS YES OR NO ONLY. BREATHING EVEN AND UNLABORED. NO SOB NOTED. ON 2LPM OXYGEN VIA NC. NO S/S OF PAIN OR DISCOMFORT. NO FACIAL GRIMACING. IV ON LEFT HAND G#22 INTACT AND PATENT WITH IVF INFUSING. SKIN DRY AND WARM TO TOUCH. AFEBRILE. ALL OTHER NEEDS ATTENDED TO. SAFETY MEASURES IN PLACE. CALL LIGHT WITHIN REACH. WILL CONTINUE TO MONITOR.
[2019-01-26 20:11] VITALS: BP 130/61
[2019-01-27] MEDS: HEPARIN SODIUM, PORCINE 5000 UNITS/1 ML VIAL SQ SCH ×2 (05:57→17:54)
[2019-01-27 06:29] LABS: BASOPHILS # (AUTO) 0.1 /CMM (0.0-0.2); BASOPHILS % (AUTO) 0.6 % (0.0-2.0); EOSINOPHILS % (AUTO) 1.2 % (0.0-6.0); HEMATOCRIT 33 % (39-51); HEMOGLOBIN 11.2 g/dL (13.5-17.5); LYMPHOCYTES # (AUTO) 1.3 /CMM (0.8-4.8); LYMPHOCYTES % (AUTO) 11.7 % (20.0-44.0); MEAN CORPUSCULAR HGB CONC 34 g/dl (31.0-36.0); MEAN CORPUSCULAR VOLUME 82 fL (80-96); MONOCYTES # (AUTO) 1.3 /CMM (0.1-1.30); MONOCYTES % (AUTO) 11.3 % (2.0-12.0); NEUTROPHILS # (AUTO) 8.7 /CMM (1.8-8.9); NEUTROPHILS % (AUTO) 75.2 % (43.0-81.0); PLATELET COUNT (AUTO) 275 /CMM (150-450); RED BLOOD CELL COUNT(AUTO) 4.01 MIL/uL (4.5-6.0); WHITE BLOOD COUNT (AUTO) 11.5 K/uL (4.3-11.0)
[2019-01-27 06:33] LABS: ALANINE AMINOTRANSFERASE 26 U/L (12-78); ALKALINE PHOSPHATASE 105 U/L (46-116); ASPARTATE AMINOTRANSFERASE 34 U/L (15-37); BILIRUBIN,TOTAL 0.7 mg/dL (0.2-1.0); CALCIUM, SERUM 9.6 mg/dL (8.5-10.1); CARBON DIOXIDE 19 mmol/L (21-32); CHLORIDE 115 mmol/L (98-107); CREATININE 2.2 mg/dL (0.6-1.3); GLUCOSE 83 mg/dL (74-106); MAGNESIUM 1.9 mg/dL (1.8-2.4); PHOSPHORUS 2.2 mg/dL (2.5-4.9); POTASSIUM 3.1 mmol/L (3.5-5.1); SODIUM SERUM 148 mmol/L (136-145); TOTAL PROTEIN, SERUM 5.3 g/dL (6.4-8.2); UREA NITROGEN, BLOOD 47 mg/dL (7-18)
--- NOTE | 2019-01-27 06:58 | NUR ---
MS RN CLOSING NOTES PATIENT IN BED AWAKE. NO ACUTE CHANGES THROUGHOUT SHIFT. BREATHING EVEN AND UNLABORED. NO SOB NOTED. ON 2LPM OXYGEN VIA NC. NO S/S OF PAIN OR DISCOMFORT. NO FACIAL GRIMACING. IV ON LEFT HAND G#22 INTACT AND PATENT WITH IVF INFUSING. SKIN DRY AND WARM TO TOUCH. KEPT CLEAN DRY AND COMFORTABLE. ALL OTHER NEEDS ATTENDED TO. SAFETY MEASURES IN PLACE. CALL LIGHT WITHIN REACH. WILL ENDORSE TO ONCOMING NURSE FOR ASHUTOSH.
[2019-01-27] MEDS: IV D5W 1,000 ML IV PRN ×2 (07:07→19:05)
--- NOTE | 2019-01-27 07:14 | NUR ---
M/S RN NOTES PATIENT RESTING IN BED. NO RESPIRATORY DISTRESS NOTED, ON O2 AT 2L VIA NASAL CANULA. PATIENT WITH NO C/O PAIN AT THIS TIME. IVF OF D5W INFUSING AT 100ML/HR ON THE LT HAND #22G, NO REDNESS, NO INFILTRATION. SKIN WARM TO TOUCH. BED ON LOW AND LOCKED POSITION, CALL LIGHT WITHIN REACH. WILL CONTINUE TO MONITOR.
[2019-01-27 08:00] VITALS: BP 103/53
[2019-01-27 08:09] LABS: IMMUNOGLOBULIN A, SERUM 167 mg/dL (61-437); IMMUNOGLOBULIN G, SERUM 709 mg/dL (700-1600)
[2019-01-27] MEDS: FUROSEMIDE 20 MG/2 ML VIAL IV SCH ×2 (08:29→21:00)
[2019-01-27] MEDS: Z GUARD REMEDY 2 OZ OINT TP SCH (08:30)
[2019-01-27 10:12] LABS: IMMUNOGLOBULIN M, SERUM 137 mg/dL (15-143)
[2019-01-27] MEDS: POTASSIUM CL. PREMIX PERIPHER. 50 ML IV SCH ×3 (10:51→13:05)
[2019-01-27 16:00] VITALS: BP 105/57
--- NOTE | 2019-01-27 18:13 | NUR ---
M/S RN NOTES PATIENT AWAKE LYING IN BED, NO RESPIRATORY DISTRESS, O2 AT 2L VIA NASAL CANULA. PATIENT WITH NO C/O OF PAIN. IVF OF D5W INFUSING AT 100ML/HR ON LT HAND #22G, NO REDNESS, NO INFILTRATION NOTED. SKIN WARM TO TOUCH. PATIENT'S NEEDS ATTENDED. BED ON LOW AND LOCKED POSTION. WILL ENDORSE TO ONCOMING NURSE
--- NOTE | 2019-01-27 19:28 | NUR ---
MS RN OPENING NOTES RECEIVED PATIENT IN BED AWAKE, NOT IN ANY DISTRESS. BREATHING EVEN AND UNLABORED. NO SOB NOTED. ON 2LPM OXYGEN VIA NC. NO S/S OF PAIN OR DISCOMFORT. NO FACIAL GRIMACING. IV ON LEFT HAND G#22 INTACT AND PATENT WITH IVF INFUSING. SKIN DRY AND WARM TO TOUCH. AFEBRILE. ALL OTHER NEEDS ATTENDED TO. SAFETY MEASURES IN PLACE. CALL LIGHT WITHIN REACH. WILL CONTINUE TO MONITOR.
[2019-01-27 20:00] VITALS: BP 105/53
[2019-01-27 21:31] VITALS: BP 104/50
--- NOTE | 2019-01-27 21:31 | NUR ---
RN MS NOTES LASIX 20MG IV NOT GIVEN DUE TO DECREASED BLOOD PRESSURE - 104/50. WILL CONTINUE TO MONITOR.
[2019-01-28] MEDS: IV D5W 1,000 ML IV PRN (05:54)
[2019-01-28] MEDS: HEPARIN SODIUM, PORCINE 5000 UNITS/1 ML VIAL SQ SCH ×2 (06:07→17:39)
[2019-01-28 06:08] LABS: *IFE A/G RATIO 0.9 (0.7-1.7); *IFE ALBUMIN 2.3 g/dL (2.9-4.4); *IFE ALPHA-2-GLOBULIN 1.1 g/dL (0.4-1.0); *IFE BETA GLOBULIN 0.6 g/dL (0.7-1.3); *IFE GAMMA GLOBULIN 0.7 g/dL (0.4-1.8); *IFE M-SPIKE 0.3 g/dL (Not Observed); *IFEALPHA-1-GLOBULIN 0.3 g/dL (0.0-0.4)
--- NOTE | 2019-01-28 06:33 | NUR ---
MS RN CLOSING NOTES PATIENT IN BED AWAKE. NO ACUTE CHANGES THROUGHOUT SHIFT. BREATHING EVEN AND UNLABORED. NO SOB NOTED. ON 2LPM OXYGEN VIA NC BUT PATIENT OCCASIONALLY TAKES IT OFF. NO S/S OF PAIN OR DISCOMFORT. NO FACIAL GRIMACING. IV ON RIGHT AC G#22 G#22 INTACT AND PATENT WITH IVF INFUSING. SKIN DRY AND WARM TO TOUCH. KEPT CLEAN DRY AND COMFORTABLE. ALL OTHER NEEDS ATTENDED TO. SAFETY MEASURES IN PLACE. CALL LIGHT WITHIN REACH. WILL ENDORSE TO ONCOMING NURSE FOR ASHUTOSH.
[2019-01-28 06:48] LABS: ALANINE AMINOTRANSFERASE 22 U/L (12-78); ALBUMIN 1.9 g/dL (3.4-5.0); ALKALINE PHOSPHATASE 98 U/L (46-116); ASPARTATE AMINOTRANSFERASE 29 U/L (15-37); BILIRUBIN,TOTAL 0.7 mg/dL (0.2-1.0); CALCIUM, SERUM 9.5 mg/dL (8.5-10.1); CARBON DIOXIDE 18 mmol/L (21-32); CHLORIDE 110 mmol/L (98-107); CREATININE 2.1 mg/dL (0.6-1.3); GLUCOSE 79 mg/dL (74-106); POTASSIUM 3.2 mmol/L (3.5-5.1); SODIUM SERUM 142 mmol/L (136-145); UREA NITROGEN, BLOOD 46 mg/dL (7-18)
[2019-01-28 08:00] VITALS: BP 103/58
--- NOTE | 2019-01-28 08:10 | NUR ---
m/s observer helper: md visit seen and examined by dr. mendoza with order to start pt on puree, no swallow eval needed, and hold all home meds. orders read back and carried out.
[2019-01-28 08:13] VITALS: BP 103/58
[2019-01-28] MEDS: Z GUARD REMEDY 2 OZ OINT TP SCH (08:51)
[2019-01-28 08:56] VITALS: BP 103/43
[2019-01-28] MEDS: FUROSEMIDE 20 MG/2 ML VIAL IV SCH ×2 (08:56→21:24)
--- NOTE | 2019-01-28 09:10 | NUR ---
m/s packaging inspector: notes assisted pt with feeding with hob elevated at 90 degree and noted pt coughing when fed. held breakfast and dr. mendoza notified and made aware with order to for swallow eval. order carried out.
--- NOTE | 2019-01-28 10:00 | NUR ---
m/s supervisor last model department: notes swallow eval completed by speech therapist.
--- NOTE | 2019-01-28 11:00 | NUR ---
m/s global manager: notes nicole (case management) here and informed us that pt will go to the [facility] and dr. mendoza will f/u once pt gets there for continuity of care.
--- NOTE | 2019-01-28 11:25 | NUR ---
m/s automated cutting machine operator: notes report given to annette (rn) at the [facility] for continuity of care. left message to soco (brother) re: d'c to snf via voice mail. case management arrange placement and transportation. will continue to monitor.
[2019-01-28] MEDS ORDERED: POTASSIUM CHLORIDE 20 MEQ POWDER PACKET PO SCH (11:30)
--- NOTE | 2019-01-28 11:30 | NUR ---
m/s head teacher: notes discharge skin photos taken and place in chart.
--- NOTE | 2019-01-28 11:51 | NUR ---
m/s steam clothes press operator: notes cn received order from dr. mendoza to d'c pt to the [facility]. order acknowledged.
--- NOTE | 2019-01-28 12:00 | NUR ---
m/s conductor sleeping car: notes pt unable to sign all d'c papers due to cognitive impairment. 2 license staff signed all d'c papers. eta corn picker at 1300. lunch served. hob elevated. staff assisting pt with meal. will continue to monitor.
--- NOTE | 2019-01-28 12:54 | NUR ---
m/s rn radiology: notes dr. mendoza called and wants hospice eval done here instead per cn. ambulance is on will call per case management.
--- NOTE | 2019-01-28 12:59 | NUR ---
m/s male impersonator: notes place a call to annette (rn) at the [place] and inform him that pt is going to evaluated here for hospice instead and ambulance is on will call, stated, "yes i am aware, i spoke to dr. mendoza and have him evaluated there for hospice then discharge."
--- NOTE | 2019-01-28 13:10 | NUR ---
m/s ballpoint pens assembler: notes dr. zuñiga at bedside and will call pt's brother re: hospice eval.
--- NOTE | 2019-01-28 13:20 | NUR ---
m/s industrial health and safety professor: discharged discharged home via taxi with voucher with all d'c papers and valuables in stable condition. Addendum: 01/28/19 at 1326 by KEEGAN TORRESN above charting error, wrong pt
--- NOTE | 2019-01-28 15:00 | NUR ---
m/s tractor trailer truck driver: notes resting comfortable in bed. no distress noted. will monitor.
[2019-01-28 15:57] VITALS: BP 94/52
[2019-01-28 16:00] VITALS: BP 94/52
[2019-01-28] MEDS: ENSURE ENLIVE 237 ML LIQUID (VANILLA) PO SCH (17:00)
--- NOTE | 2019-01-28 17:28 | NUR ---
m/s international flight attendant: notes in bed awake, appetite is poor. pt still with delayed swallow; aspiration precaution maintained. hob elevated at 90 degree. will continue to monitor.
--- NOTE | 2019-01-28 19:00 | NUR ---
m/s collection coordinator: notes report given to svitlana (rn) for continuity of care.
[2019-01-28 20:00] VITALS: BP 128/83
--- NOTE | 2019-01-28 20:00 | NUR ---
RN NOTES RECEIVED PATIENT IN BED, ALERT AND ORIENTED X1, ON ROOM AIR, SPO2 95%, ANSWERS SIMPLE QUESTION, DENIES PAIN AT THIS TIME, ON PUREED DIET, INCONTINENT OF BOWEL AND BLADDER, FOR HOSPICE EVAL, KEPT SAFE AND COMFORTABLE, CALL LIGHT WITHIN REACH
[2019-01-29] MEDS: IV D5W 1,000 ML IV PRN (05:46)
[2019-01-29] MEDS: HEPARIN SODIUM, PORCINE 5000 UNITS/1 ML VIAL SQ SCH (05:50)
--- NOTE | 2019-01-29 07:13 | NUR ---
RN NOTES PATIENT IS ALERT AND AWAKE, RESPIRATORY RATE 23, MOUTH BREATHER, SPO2 AT ROOM AIR 93%, KEPT HOB ELEVATED, ON D5W AT 100 CC/HR, VOIDING SPONTANEOUSLY, PERINEAL CARE PROVIDED, SCROTAL MASD, Z GUARD APPLIED, AWAITING HOSPICE EVAL BEFORE DISCHARGE
[2019-01-29 07:29] LABS: ALANINE AMINOTRANSFERASE 23 U/L (12-78); ALBUMIN 2.1 g/dL (3.4-5.0); ALKALINE PHOSPHATASE 107 U/L (46-116); ASPARTATE AMINOTRANSFERASE 25 U/L (15-37); BILIRUBIN,TOTAL 0.7 mg/dL (0.2-1.0); CALCIUM, SERUM 9.9 mg/dL (8.5-10.1); CARBON DIOXIDE 18 mmol/L (21-32); CHLORIDE 109 mmol/L (98-107); GLUCOSE 87 mg/dL (74-106); POTASSIUM 3.4 mmol/L (3.5-5.1); SODIUM SERUM 142 mmol/L (136-145); TOTAL PROTEIN, SERUM 5.2 g/dL (6.4-8.2); UREA NITROGEN, BLOOD 45 mg/dL (7-18)
--- NOTE | 2019-01-29 07:33 | NUR ---
MS RN OPENING NOTES RECEIVED PT IN BED, AWAKE, A/O X1. TOLERATING ROOM AIR, WITH NO ACUTE RESPIRATORY DISTRESS NOTED. PT UNDERSTANDS MOHAWK, ANSWERS BY MOTHING WORDS. PT DENIES PAIN. IVF D5W AT 100ML/HR TO [id number], INTACT AND FLUID INFUSING WELL. HOB KEPT ELEVATED. PT KEPT COMFORTABLE. PT'S BED IN LOWEST LOCKED POSITION WITH SR X2. CALL LIGHT KEPT WITHIN REACH. WILL CONTINUE PLAN OF CARE.
[2019-01-29 08:00] VITALS: BP_SYST 114; BP_DIAS 56; BP_DIAS 58
[2019-01-29] MEDS: FUROSEMIDE 20 MG/2 ML VIAL IV SCH (09:17)
[2019-01-29] MEDS: ENSURE ENLIVE 237 ML LIQUID (VANILLA) PO SCH (09:17)
[2019-01-29] MEDS: Z GUARD REMEDY 2 OZ OINT TP SCH (09:25)
[2019-01-29] MEDS ORDERED: POTASSIUM CL. PREMIX PERIPHER. 50 ML IV SCH (09:45)
[2019-01-29] MEDS ORDERED: POTASSIUM CHLORIDE 10 MEQ TABLET.SA PO ONE (10:00)
--- NOTE | 2019-01-29 10:30 | NUR ---
MS RN NOTES PT EVALUATED BY [facility], FAMILY PRESENT BEDSIDE. FAMILY NOTED SIGNING PAPERS WITH 2NURSES FROM [facility].
--- NOTE | 2019-01-29 12:54 | NUR ---
MS [facility] NOTES PT DISCHARGED TO THE [facility] WITH [facility]. A/O X1-2, MOUTHS WORDS. TOLERATING RA WITH 93-94% SATURATION. PT DENIES ANY PAIN OR DISCOMFORT. PT JUST FINISHED LUNCH ASSISTED BY SUSAN. PICTURES OR SCROTUM AND SACRUM SKIN ISSUES TAKEN AND FILED TO CHART AT 1215. NO BELONGINGS FOUND, SIGNED BY 2NURSES. DISCHARGE PACKET WAS GIVEN TO 2 MED SPEC; FAMILY AWARE. ALL NEEDS AND CARE PROVIDED. PT ACCOMPANIED BY 2EMTS VIA GURNEY. LEFT THE UNIT AT 1245. CN AND AWARE.
[2019-01-31 08:06] LABS: *IFEU ALPHA-2-GLOBULIN 9.6 % (.); *IFEU M-SPIKE 4.9 % (Not Observed)
== END 2019-01-29 12:50 | disposition hospice, inpatient (51) | DRG 843 ==
LOC: ER 14:09 → TELE 16:25 → MED 01-23 08:34
PROVIDERS: ADMIT Internal Medicine; ATTEND Internal Medicine
DX: C80.1 Malignant (primary) neoplasm, unspecified (principal); N17.0 Acute kidney failure with tubular necrosis; G92 Toxic encephalopathy; I69.354 Hemiplegia and hemiparesis following cerebral infarction affecting left non-dominant side; E87.0 Hyperosmolality and hypernatremia; E87.2 Acidosis; R64 Cachexia; E46 Unspecified protein-calorie malnutrition; R18.8 Other ascites; E78.5 Hyperlipidemia, unspecified; I12.9 Hypertensive chronic kidney disease with stage 1 through stage 4 chronic kidney disease, or unspecified chronic kidney disease; N18.3 Chronic kidney disease, stage 3 (moderate); E86.9 Volume depletion, unspecified; F03.90 Unspecified dementia, unspecified severity, without behavioral disturbance, psychotic disturbance, mood disturbance, and anxiety; N40.0 Benign prostatic hyperplasia without lower urinary tract symptoms; I25.10 Atherosclerotic heart disease of native coronary artery without angina pectoris; D72.829 Elevated white blood cell count, unspecified; E83.52 Hypercalcemia; Z68.23 Body mass index [BMI] 23.0-23.9, adult; Z51.5 Encounter for palliative care; R59.0 Localized enlarged lymph nodes; C78.6 Secondary malignant neoplasm of retroperitoneum and peritoneum; E87.6 Hypokalemia; E87.8 Other disorders of electrolyte and fluid balance, not elsewhere classified; F99 Mental disorder, not otherwise specified; E03.9 Hypothyroidism, unspecified; R09.02 Hypoxemia; Z87.891 Personal history of nicotine dependence
CPT/HCPCS: 36415; 70450-TC; 71045-TC; 71250-TC; 77075-TC; 80048-TC; 80053-TC; 80076-TC; 81000-TC; 82140-TC; 82232; 82306; 82310-TC; 82378; 82550-TC; 82570-TC; 82595; 82784; 83540-TC; 83605-TC; 83615-TC; 83735-TC; 83880; 83935-TC; 83970; 84100-TC; 84153-TC; 84154-TC; 84155; 84155-TC; 84156; 84165; 84166; 84300-TC; 84443-TC; 84484-TC; 84550-TC; 85025-TC; 85652-TC; 85730-TC; 86301; 86334; 86335; 87040-TC; 87081-TC; 87086-TC; 87186-TC; 92526; 92611-TC; 94799-TC; G0378; J1644; J1940; J2543; J3370; J3480; J3490; J7030; J7040; J7060; J7070